=== PATIENT | male | born 1955 ===

== ENCOUNTER 2023-10-17 15:59 | Emergency (ER) | payer BC ==
--- NOTE | 2023-11-17 09:08 | XR ---
Patient: Mukul Denton Ordering Physician: Unknown, Unknown ID: [id number] Phone, Pager: Phone: N /A Pager: N/A : 1955 Age/Gender: 68Y, M Primary Location: N/A Procedure: XR Hip Complete RT S estellady Date: 10/17/2023 6:05:50 PM EXAMINATION TYPE: XR Hip Complete RT DATE OF EXAM: 11/03/2023 11:33 AM CLINICAL INDICATION: Pain COMPARISON: None. TECHNIQUE: XR Hip Complete RT; hip was examined in the frontal and lateral projections and a AP pelvi s. FINDINGS: No evidence for acute process, joint dislocation or significant soft tissue swelling. Osteo phyte formation of the superior acetabulum of the hip. There is mild joint space narrowing. IMPRESSION: 1. No evidence for acute process. 2. Mild hip osteoarthrosis.
== END 2023-10-17 18:12 | disposition home or self-care (01) ==
LOC: EC 15:59
DX: M70.71 Other bursitis of hip, right hip (principal)
CPT/HCPCS: 73502; 96372; 99283